=== PATIENT | male | born 1975 | race Caucasian/White ===

== ENCOUNTER 2019-10-03 18:15 | Emergency (ER) | payer SELFPAY ==
[~2019-10-03] VITALS: Ht 167.6 cm; Wt 81.8 kg
[~2019-10-03 18:15] MED LIST: UNK ANTIBIOTIC PO
[2019-10-03] MEDS ORDERED: ACET-2247 PO (18:39)
[2019-10-03 23:18] VITALS: BP 132/72
== END 2019-10-03 23:20 | disposition home or self-care (01) ==
LOC: EMS 18:16
DX: G44.209 Tension-type headache, unspecified, not intractable (principal); G47.00 Insomnia, unspecified; F17.210 Nicotine dependence, cigarettes, uncomplicated
CPT/HCPCS: 70450